=== PATIENT | male | born 1950 | race Caucasian/White ===

== ENCOUNTER 2018-02-23 07:07 | Day surgery (SDC) | payer MEDICARE, OTHER ==
[2018-02-23] MEDS ORDERED: LACTATED RINGERS 1,000 ML IV ONE (07:42)
[2018-02-23] MEDS ORDERED: fentaNYL 250 MCG/5 ML VIAL IVP ONE (08:04)
[2018-02-23] MEDS ORDERED: MIDAZOLAM 2 MG/2 ML VIAL IVP ONE (08:04)
[2018-02-23 09:09] VITALS: BP 140/53
== END 2018-02-23 07:08 | disposition home or self-care (01) ==
LOC: SDS 07:07
PROVIDERS: ATTEND Surgery
PROC: 0DBN8ZZ Excision of Sigmoid Colon, Via Natural or Artificial Opening Endoscopic (ICD-10-PCS; 2018-02-23)
PROC: 0DBN8ZZ Excision of Sigmoid Colon, Via Natural or Artificial Opening Endoscopic (ICD-10-PCS; 2018-02-23)
PROC: 0DBK8ZZ Excision of Ascending Colon, Via Natural or Artificial Opening Endoscopic (ICD-10-PCS; principal; 2018-02-23 08:15)
DX: Z12.11 Encounter for screening for malignant neoplasm of colon (principal); D12.2 Benign neoplasm of ascending colon; D12.5 Benign neoplasm of sigmoid colon; K63.5 Polyp of colon; I10 Essential (primary) hypertension; E11.9 Type 2 diabetes mellitus without complications; E78.5 Hyperlipidemia, unspecified; R01.1 Cardiac murmur, unspecified; J45.909 Unspecified asthma, uncomplicated; Z79.4 Long term (current) use of insulin; Z79.82 Long term (current) use of aspirin
CPT/HCPCS: 45380; 45385; J3010; J7120

== ENCOUNTER 2018-09-01 13:11 | Outpatient (CLI) | payer MEDICARE, OTHER ==
[2018-09-01 13:53] LABS: CALCIUM 9.1 mg/dL (8.5-10.3)
== END 2018-09-01 13:12 | disposition home or self-care (01) ==
LOC: LAB 13:11
PROVIDERS: ATTEND Internal Medicine
DX: E87.5 Hyperkalemia (principal)
CPT/HCPCS: 36415; 80048

== ENCOUNTER 2020-10-04 12:48 | Emergency (ER) | payer MEDICARE, OTHER ==
[2020-10-04 16:25] LABS: BILIRUBIN,URINE NEGATIVE (NEGATIVE); GLUCOSE, URINE (UA) NEGATIVE (NEGATIVE); KETONES,URINE (UA) TRACE mg/dL (NEGATIVE); LEUKOCYTE ESTERASE, URINE NEGATIVE (NEGATIVE); NITRITE,URINE NEGATIVE (NEGATIVE); OCCULT BLOOD,URINE NEGATIVE (NEGATIVE); PROTEIN,URINE NEGATIVE (NEGATIVE); UROBILINOGEN,URINE 0.2 (NORMAL) E.U./dL (NORMAL)
[2020-10-04 16:27] LABS: CLARITY,URINE CLEAR (CLEAR)
[2020-10-04 16:29] LABS: BASOPHILS % (AUTO) 0.3 %; EOSINOPHILS % (AUTO) 0.3 %; HCT - HEMATOCRIT 27.5 % (42.0-52.0); HGB - HEMOGLOBIN 7.7 g/dL (14.0-18.0); LYMPHOCYTES % (AUTO) 13.2 %; MEAN CORPUSCULAR HEMOGLOBIN 19.8 pg (27.0-31.0); MEAN CORPUSCULAR VOLUME 70.9 fL (80.0-94.0); MEAN PLATELET VOLUME 8.9 fL (7.4-11.4); MONOCYTES # (AUTO) 0.6 10^3/uL (0.0-1.0); MONOCYTES % (AUTO) 8.1 %; NEUTROPHILS # (AUTO) 6.1 10^3/uL (1.5-6.6); PLT - PLATELET COUNT 528 10^3/uL (130-450); RED BLOOD COUNT 3.88 10^6/uL (4.70-6.10); WHITE BLOOD COUNT 7.8 x10^3/uL (4.8-10.8)
--- NOTE | 2020-10-04 16:30 | XRAY Report ---
PROCEDURE: Chest 1 View X-Ray INDICATIONS: chest pain TECHNIQUE: One view of the chest was acquired. COMPARISON: None. FINDINGS: Surgical changes and devices: None. Lungs and pleura: There is elevation of the right hemidiaphragm. Linear right hilar opacities medial ly likely represent atelectasis. Left lung is clear. No pleural effusions or pneumothorax. Mediastinum: Mediastinal contours appear normal. Heart size is normal. Bones and chest wall: No suspicious bony lesions. Overlying soft tissues appear unremarkable. IMPRESSION: 1. Elevation of the right hemidiaphragm with probable atelectasis, versus consolidation, in the media l right lung base. Reviewed by: Gennaro Hoff MD on 10/04/2020 4:29 PM PDT Approved by: Gennaro Hoff MD on 10/04/2020 4:29 PM PDT Station ID: [id number]
[2020-10-04 16:38] LABS: SLIDE REVIEW? Indicated
--- NOTE | 2020-10-04 16:40 | ED Physician Documentation ---
History of Present Illness - Stated complaint Stated Complaint: NAUSEA, VOMITING - Chief complaint Chief Complaint: Abd Pain - Additonal information Additional information: 70-year-old male presents the emergency department for evaluation of intermittent nausea and vomiting. Symptoms began about 2 weeks ago. He reports that typically in the morning he is able to keep his breakfast down but then in the evenings or afternoon when he eats lunch or dinner he will vomit. Some nausea but not often. He denies chest pain or shortness of air no cough or fevers. No melena. No history of past surgical abdominal history. Past medical history is most significant for diabetes, asthma as well as aortic stenosis for which he is undergoing evaluation for possible valve replacement. Review of Systems Constitutional: denies: Fever, Chills Eyes: reports: Reviewed and negative Ears: reports: Reviewed and negative Nose: reports: Reviewed and negative Throat: reports: Reviewed and negative Cardiac: reports: Reviewed and negative Respiratory: reports: Reviewed and negative GI: reports: Nausea, Vomiting. denies: Abdominal Pain, Constipation, Diarrhea : denies: Dysuria, Frequency, Hesitancy Skin: denies: Rash, Lesions PD PAST MEDICAL HISTORY - Past Medical History Past Medical History: Yes Cardiovascular: Hypertension, High cholesterol, Murmur Respiratory: Asthma Endocrine/Autoimmune: Type 2 diabetes Derm: Eczema - Past Surgical History Past Surgical History: Yes General: Colonoscopy HEENT: Cataracts - Present Medications Home Medications: Ambulatory Orders Medication Instructions Recorded Confirmed Albuterol 2.5 mg INH Q4H PRN 02/20/18 02/23/18 Amlodipine Besylate 10 mg PO DAILY 02/20/18 02/23/18 Aspirin [Adult Aspirin] 81 mg PO DAILY 02/20/18 02/23/18 Chlorthalidone 25 mg PO DAILY 02/20/18 02/23/18 Doxazosin [Cardura] 8 mg PO DAILY 02/20/18 02/23/18 Fluticasone/Salmeterol [Advair 1 puffs PO QID 02/20/18 02/23/18 250-50 Diskus] Insulin Aspart [Novolog Flexpen] 10 unit SUBQ ACHS 02/20/18 02/23/18 Insulin Detemir [Levemir Flextouch] 28 unit SQ BID 02/20/18 02/23/18 Loratadine [Claritin] 10 mg PO DAILY 02/20/18 02/23/18 Simvastatin [Zocor] 20 mg PO DAILY 02/20/18 02/23/18 Telmisartan [Micardis] 40 mg PO DAILY 02/20/18 02/23/18 carvediloL [Carvedilol] 25 mg PO BID 02/20/18 02/23/18 metFORMIN [Glucophage] 1,000 mg PO BID 02/20/18 02/23/18 - Allergies Allergies/Adverse Reactions: Allergies Allergy/AdvReac Type Severity Reaction Status Date / Time furosemide [From Lasix] Allergy Cramps Verified 10/04/20 13:04 insulin glargine Allergy Unknown Verified 10/04/20 13:04 [From Lantus U-100 Insulin] minoxidil Allergy increased Verified 02/23/18 07:34 heart rate - Social History Does the pt smoke?: No Smoking Status: Never smoker Does the pt drink ETOH?: No Does the pt have substance abuse?: No - Immunizations Immunizations are current?: Yes PD ED PE EXPANDED - General General: Alert. No: No acute distress - Cardiac Cardiac: Regular Rate, Murmur Present, Radial strong equal, Cap refill < 2 sec - Respiratory Respiratory: Clear to ausultation kat, Other (Reduced lungs sounds right lower lobe). No: Distress, Labored - Abdomen Abdomen: Distended (Very distended abdomen but nontender. Normal bowel sounds. There are palpable lower abdominal hernias easily reduced laterally to the umbilicus). No: Tender to palpation - Derm Derm: Warm and dry, Pale - Extremities Extremities: Normal. No: Deformity, Tenderness - Neuro Neuro: Alert and Oriented X 3, CNII-XII intact - GCS Eye Opening: Spontaneous Motor: Obeys Commands Verbal: Oriented Total: 15 Results - Vitals Vitals: Vital Signs - 24 hr 10/04/20 10/04/20 10/04/20 12:57 15:58 17:07 Temperature 36.2 C L 98.6 C H 36.7 C Heart Rate 74 82 85 Respiratory 16 16 16 Rate Blood Pressure 104/69 105/51 L 123/53 L O2 Saturation 99 99 96 10/04/20 18:43 Temperature Heart Rate 91 Respiratory 18 Rate Blood Pressure 141/65 H O2 Saturation 100 Oxygen O2 Source Room air - EKG (time done) 1618 Rate: Rate (enter#) (85) Rhythm: NSR Intervals: Other (IVCD) QRS: Low voltage Ischemia: Normal ST segments Compare to prior EKG: Old EKG unavailable Computer interpretation: Agree with computer - Labs Labs: Laboratory Tests 10/04/20 10/04/20 10/04/20 16:10 16:20 16:20 WBC 7.8 RBC 3.88 L Hgb 7.7 L Hct 27.5 L MCV 70.9 L MCH 19.8 L MCHC 28.0 L RDW 21.0 H Plt Count 528 H MPV 8.9 Neut # (Auto) 6.1 Lymph # (Auto) 1.0 L [place] # (Auto) 0.6 Eos # (Auto) 0.0 Baso # (Auto) 0.0 Absolute Nucleated RBC 0.00 Nucleated RBC % 0.0 Manual Slide Review Indicated Platelet Estimate INCREASED (>450,000) Platelet Morphology NORMAL APPEARANCE RBC Morph Micro Appear 1+ SCHISTOCYTES Sodium 131 L Potassium 4.3 Chloride 93 L Carbon Dioxide 23 Anion Gap 15.0 H BUN 54 H Creatinine 1.5 H Estimated GFR (MDRD) 46 L Glucose 156 H POC Whole Bld Glucose Calcium 8.5 Total Bilirubin 0.8 AST 18 ALT 19 Alkaline Phosphatase 87 Troponin I High Sens Total Protein 7.7 Albumin 4.1 Globulin 3.6 Albumin/Globulin Ratio 1.1 Lipase 35 Urine Color YELLOW Urine Clarity CLEAR Urine pH 5.0 Ur Specific [place] 1.025 Urine Protein NEGATIVE Urine Glucose (UA) NEGATIVE Urine Ketones TRACE Urine Occult Blood NEGATIVE Urine Nitrite NEGATIVE Urine Bilirubin NEGATIVE Urine Urobilinogen 0.2 (NORMAL) Ur Leukocyte Esterase NEGATIVE Ur Microscopic Review NOT INDICATED Urine Culture Comments NOT INDICATED 10/04/20 10/04/20 16:20 16:27 WBC RBC Hgb Hct MCV MCH MCHC RDW Plt Count MPV Neut # (Auto) Lymph # (Auto) [place] # (Auto) Eos # (Auto) Baso # (Auto) Absolute Nucleated RBC Nucleated RBC % Manual Slide Review Platelet Estimate Platelet Morphology RBC Morph Micro Appear Sodium Potassium Chloride Carbon Dioxide Anion Gap BUN Creatinine Estimated GFR (MDRD) Glucose POC Whole Bld Glucose 142 H Calcium Total Bilirubin AST ALT Alkaline Phosphatase Troponin I High Sens 5.0 Total Protein Albumin Globulin Albumin/Globulin Ratio Lipase Urine Color Urine Clarity Urine pH Ur Specific [place] Urine Protein Urine Glucose (UA) Urine Ketones Urine Occult Blood Urine Nitrite Urine Bilirubin Urine Urobilinogen Ur Leukocyte Esterase Ur Microscopic Review Urine Culture Comments - Rads (name of study) CXR Radiology: Final report received (Elevation of the right hemidiaphragm with probable atelectasis, versus consolidation in the right medial lung base) PD MEDICAL DECISION MAKING - ED course Complexity details: reviewed results, re-evaluated patient, d/w patient ED course: 70 year old Male presents to the emergency department for evaluation of 2 weeks intermittent but uncontrolled vomiting. Does have a history of hypertension diabetes and aortic stenosis. Screening labs reveal a fairly significant anemia but he denies any melena history of cancers. He has never been told that he is anemic. He also appears relatively dry with an elevated BUN and creatinine. 1 L of IV fluids was ordered. CT scan performed it does show a small bowel obstruction without a discrete transition point. This case was discussed with our on-call hospitalist as well as surgeon but given the history of the aortic stenosis we do not have the ability to manage his heart valve from a cardiovascular standpoint therefore will search for the ability to placement a hospital with those services 1945: I have spoken with Dr. Mejia who is surgeon health information technologist who accepts dominique ent. Dr. leal is accepting hospitalist. An NGT has been placed. PT will be sent via ALS. BRUNO completed Departure - Departure Disposition: 02 Transfer Acute Care Hosp Clinical Impression: Small bowel obstruction Anemia Qualifiers: Anemia type: unspecified type Qualified Code(s): D64.9 - Anemia, unspecified Aortic stenosis Qualifiers: Cardiac valve disease etiology: etiology unspecified Qualified Code(s): I35.0 - Nonrheumatic aortic (valve) stenosis
[2020-10-04 16:42] LABS: ALBUMIN 4.1 g/dL (3.2-5.5); ALBUMIN/GLOBULIN RATIO 1.1 (1.0-2.2); BILIRUBIN,TOTAL 0.8 mg/dL (0.2-1.0); CALCIUM 8.5 mg/dL (8.5-10.3); CREATININE 1.5 mg/dL (0.6-1.2); POTASSIUM 4.3 mmol/L (3.5-5.0); TOTAL PROTEIN 7.7 g/dL (6.7-8.2)
[2020-10-04] MEDS ORDERED: SODIUM CHLORIDE 0.9% 1,000 ML IV STA (16:51)
[2020-10-04 17:07] LABS: PLATELET MORPHOLOGY NORMAL APPEARANCE (NORMAL)
[2020-10-04 17:08] LABS: PLATELET ESTIMATE, MANUAL INCREASED (>450,000) (NORMAL)
[2020-10-04] MEDS ORDERED: IOVERSOL 320 100 ML VIAL IVP ONE ×2 (17:08→19:44)
--- NOTE | 2020-10-04 18:27 | CT Report ---
PROCEDURE: Abdomen/Pelvis W INDICATIONS: intermittent vomiting; ? hernia? CONTRAST: IV CONTRAST: Optiray 320 ml: 100 PO CONTRAST: *NO PO CONTRAST TECHNIQUE: After the administration of intravenous contrast, 5 mm thick sections acquired from the diaphragms to the symphysis. 5 mm thick coronal and sagittal reformats were acquired. For radiation dose reducti on, the following was used: automated exposure control, adjustment of mA and/or kV according to dominique ent size. COMPARISON: None. FINDINGS: Image quality: Excellent. ABDOMEN: Lung bases: Minimal ill-defined groundglass opacity in the right middle lobe. Heart size is normal. T hree-vessel coronary artery calcifications. Aortic valvular calcification. Mitral annular calcificati on. Solid organs: Liver and spleen are normal in size and enhancement. Gallbladder is not distended. Sm all gallstone. Biliary system is non dilated. Pancreas enhances normally. No adrenal nodules. Kid neys demonstrate normal size and enhancement, without hydronephrosis. Peritoneum and bowel: Stomach is distended. The duodenum is distended. The proximal small bowel is di lated. The small bowel measures up to 6.5 centers in diameter, (3/43). No discrete transition point t he small bowel has a gradual transition to normal caliber. The appendix is not identified. The colon is not distended. There is mildly prominent fecal residue throughout the colon. No significant divert iculosis. No pneumatosis intestinalis identified. There is mid abdomen mesenteric edema. Nodes and vessels: Prominent mesenteric lymph nodes. No retroperitoneal adenopathy. Aorta and inferi or vena cava are normal in size. Extensive calcified atherosclerotic plaque. Miscellaneous: No ventral hernias. Mild subcutaneous thickening and calcification in the lower abdom inal wall. PELVIS: Genitourinary: Bladder is unremarkable. Miscellaneous: No inguinal hernias or adenopathy. Bones: No suspicious bony lesions. Moderate DDD. No vertebral body compression fractures. IMPRESSION: 1. Small bowel obstruction. No discrete transition point. 2. Mid abdomen mesenteric edema and prominent lymph nodes. This could be reactive. 3. Mildly prominent stool the colon. 4. Small gallstone. Results were communicated to Carlie Gonzalez at 10/04/2020 6:25 PM PDT. Reviewed by: Tip Cowan MD on 10/04/2020 6:26 PM PDT Approved by: iTp Cowan MD on 10/04/2020 6:26 PM PDT Station ID: [id number]
[2020-10-04] MEDS ORDERED: LIDOCAINE JELLY 2% 6 ML JEL.PF.APP TOP STA (19:18)
[2020-10-04 20:39] VITALS: BP 127/57
[2020-10-04 21:03] LABS: B. PARAPERTUSSIS- RESP PCR PAN NOT DETECTED; B. PERTUSSIS- RESP PCR PANEL NOT DETECTED; C. PNEUMONIAE- RESP PCR PANEL NOT DETECTED; CORONAVIRUS 229E-RESP PCR NOT DETECTED; CORONAVIRUS HKU1-RESP PCR NOT DETECTED; CORONAVIRUS NL63-RESP PCR NOT DETECTED; CORONAVIRUS OC43-RESP PCR NOT DETECTED; HUMAN METAPNEUMOVIRUS NOT DETECTED; INFLUENZA A- RESP PCR PANEL NOT DETECTED; INFLUENZA B - RESP PCR PANEL NOT DETECTED; M. PNEUMONIAE- RESP PCR PANEL NOT DETECTED; PARAINFLUENZA VIRUS 1 NOT DETECTED; PARAINFLUENZA VIRUS 2 NOT DETECTED; PARAINFLUENZA VIRUS 3 NOT DETECTED; PARAINFLUENZA VIRUS 4 NOT DETECTED; RHINOVIRUS/ENTEROVIRUS NOT DETECTED; RSV- RESP PCR PANEL NOT DETECTED; SARS-CoV-2 -RESP PCR PANEL NOT DETECTED
== END 2020-10-04 20:49 | disposition short-term general hospital (02) ==
LOC: ED 12:48
DX: K56.609 Unspecified intestinal obstruction, unspecified as to partial versus complete obstruction (principal); D64.9 Anemia, unspecified; I35.0 Nonrheumatic aortic (valve) stenosis; K46.9 Unspecified abdominal hernia without obstruction or gangrene; I10 Essential (primary) hypertension; E11.9 Type 2 diabetes mellitus without complications; Z79.4 Long term (current) use of insulin; Z79.82 Long term (current) use of aspirin; J45.909 Unspecified asthma, uncomplicated; Z20.822 Contact with and (suspected) exposure to COVID-19
CPT/HCPCS: 36415; 71045; 74177; 80053; 81003; 83690; 84484; 85025; 87631; 93005; 96360; 96361; 99284; 99285; Q9967; 0202U; 81001; 87086

== ENCOUNTER 2020-10-04 20:51 | Outpatient (CLI) | payer MEDICARE, OTHER | END 2020-10-04 20:52 | disposition short-term general hospital (02) | LOC: EMS 20:51 | PROVIDERS: ATTEND Registered Nurse | DX: E11.9 Type 2 diabetes mellitus without complications (principal); I10 Essential (primary) hypertension; K56.609 Unspecified intestinal obstruction, unspecified as to partial versus complete obstruction; I35.0 Nonrheumatic aortic (valve) stenosis | CPT/HCPCS: A0425; A0428 ==

== ENCOUNTER 2020-11-09 09:37 | Emergency (ER) | payer MEDICARE, OTHER ==
[2020-11-09] MEDS ORDERED: SODIUM CHLORIDE 0.9% 1,000 ML IV STA ×3 (10:09→13:50)
[2020-11-09 10:50] LABS: BASOPHILS % (AUTO) 0.4 %; EOSINOPHILS % (AUTO) 0.8 %; HCT - HEMATOCRIT 33.4 % (42.0-52.0); HGB - HEMOGLOBIN 10.1 g/dL (14.0-18.0); LYMPHOCYTES % (AUTO) 7.6 %; MEAN CORPUSCULAR HEMOGLOBIN 24.5 pg (27.0-31.0); MEAN CORPUSCULAR HGB CONC 30.2 g/dL (32.0-36.0); MEAN CORPUSCULAR VOLUME 80.9 fL (80.0-94.0); MEAN PLATELET VOLUME 11.3 fL (7.4-11.4); MONOCYTES % (AUTO) 6.1 %; NEUTROPHILS % (AUTO) 84.7 %; PLT - PLATELET COUNT 307 10^3/uL (130-450); RED BLOOD COUNT 4.13 10^6/uL (4.70-6.10); RED CELL DISTRIBUTION WIDTH 23.2 % (12.0-15.0); WHITE BLOOD COUNT 13.7 x10^3/uL (4.8-10.8)
[2020-11-09 10:54] LABS: ABNORMAL LYMPHS % (MANUAL) 0 %
[2020-11-09 11:06] LABS: ALBUMIN 3.3 g/dL (3.2-5.5); BILIRUBIN,TOTAL 1.5 mg/dL (0.2-1.0); CALCIUM 8.9 mg/dL (8.5-10.3); CREATININE 2.7 mg/dL (0.6-1.2); POTASSIUM 4.6 mmol/L (3.5-5.0); TOTAL PROTEIN 6.7 g/dL (6.7-8.2)
[2020-11-09 11:27] LABS: BAND NEUTROPHILS % (MANUAL) 7 %; EOSINOPHILS # (MANUAL) 0.5 10^3/uL (0-0.7); LYMPHOCYTES # (MANUAL) 1.1 10^3/uL (1.5-3.5); LYMPHOCYTES % (MANUAL) 8 %; MONOCYTES # (MANUAL) 0.3 10^3/uL (0.0-1.0); NEUTROPHILS # (MANUAL) 11.8 10^3/uL (1.5-6.6)
[2020-11-09 11:28] LABS: DIFFERENTIAL COMMENT MANUAL DIFFERENTIAL; PLATELET ESTIMATE, MANUAL NORMAL (130-450,000) (NORMAL); PLATELET MORPHOLOGY NORMAL APPEARANCE (NORMAL)
[2020-11-09] MEDS ORDERED: ONDANSETRON 4 MG/2 ML VIAL IVP STA (11:51)
--- NOTE | 2020-11-09 12:27 | ED Physician Documentation ---
History of Present Illness - Stated complaint Stated Complaint: WEAKNESS - Chief complaint Chief Complaint: Cardiac - History obtained from History obtained from: Patient - Additonal information Additional information: Patient comes emergency department chief complaint of generalized weakness and frequent falls. He states that he has been vomiting on a daily basis, though this is not constant and he is able to hold down Pedia sure clear liquids in between. However, he does not think that he is been able to stay adequately hydrated. The patient denies any black stools. No blood in his vomit or coffee grounds. The patient was seen for the symptoms about a month ago at first that would be ED and then ultimately transferred to [facility] for possible bowel obstruction with underlying condition of aortic stenosis. He was in the hospital for some days during which time an exploratory laparotomy was performed. Patient states he was told he did not actually have a bowel obstruction but just a large caliber large bowel. He states that he was evaluated at that time for his aortic stenosis, which has been ongoing for the last 30 years. He states that he has an appointment coming up with the cardiovascular surgeon in about 1 month., And the plan is for likely valve replacement. Patient states that he was never really told why he is having the digestive system problems, but that he did have endoscopy and a colonoscopy about 4 days ago. He has not heard anything further about this, either. He has been living at home by himself except for his severely disabled brother, who has MRCP. Patient states he is the sole caregiver of his brother and that they do not have any other family members anywhere nearby. He does have a neighbor who takes him to his doctor's appointments and does try to provide some assistance. The patient is not currently on any antiemetics at home. He states he is just weak and feels like he cannot even stand up sometimes. He states this has been going on for about the last week. No chest pain or shortness of breath. No fevers. No dysuria. No other complaints at this time. Other than a couple of bruises on his forehead which are old, no injuries from the falls. Review of Systems Ten Systems: 10 systems reviewed and negative Constitutional: reports: Reviewed and negative Eyes: reports: Reviewed and negative Ears: reports: Reviewed and negative Nose: reports: Reviewed and negative Throat: reports: Reviewed and negative Cardiac: reports: Reviewed and negative Respiratory: reports: Reviewed and negative GI: reports: Nausea, Vomiting, Reviewed and negative : reports: Reviewed and negative Skin: reports: Reviewed and negative Musculoskeletal: reports: Reviewed and negative Neurologic: reports: Generalized weakness Psychiatric: reports: Reviewed and negative Endocrine: reports: Reviewed and negative Immunocompromised: reports: Reviewed and negative PD PAST MEDICAL HISTORY - Past Medical History Past Medical History: Yes Cardiovascular: Hypertension, High cholesterol, Murmur Respiratory: Asthma Endocrine/Autoimmune: Type 2 diabetes Derm: Eczema - Past Surgical History Past Surgical History: Yes General: Colonoscopy HEENT: Cataracts - Present Medications Home Medications: Ambulatory Orders Medication Instructions Recorded Confirmed Albuterol 2.5 mg INH Q4H PRN 02/20/18 11/09/20 Amlodipine Besylate 5 mg PO DAILY 02/20/18 11/09/20 Aspirin [Adult Aspirin] 81 mg PO DAILY 02/20/18 11/09/20 Doxazosin [Cardura] 8 mg PO DAILY 02/20/18 11/09/20 Fluticasone/Salmeterol [Advair 1 puffs PO QID 02/20/18 11/09/20 250-50 Diskus] Loratadine [Claritin] 10 mg PO DAILY 02/20/18 11/09/20 Simvastatin [Zocor] 20 mg PO DAILY 02/20/18 11/09/20 Telmisartan [Micardis] 40 mg PO DAILY 02/20/18 11/09/20 carvediloL [Carvedilol] 25 mg PO BID 02/20/18 11/09/20 Insulin Degludec [Tresiba] 15 unit DAILY 11/09/20 11/09/20 Ondansetron Odt [Zofran] 4 mg TL Q6H PRN #20 tablet 11/09/20 - Allergies Allergies/Adverse Reactions: Allergies Allergy/AdvReac Type Severity Reaction Status Date / Time furosemide [From Lasix] Allergy Cramps Verified 11/09/20 09:59 insulin glargine Allergy Unknown Verified 11/09/20 09:59 [From Lantus U-100 Insulin] minoxidil Allergy increased Verified 11/09/20 09:59 heart rate - Social History Does the pt smoke?: No Smoking Status: Never smoker Does the pt drink ETOH?: No Does the pt have substance abuse?: No - Immunizations Immunizations are current?: Yes PD ED PE NORMAL - Vitals Vital signs reviewed: Yes - General General: Alert and oriented X 3, No acute distress, Well developed/nourished - HEENT HEENT: Atraumatic, PERRL, EOMI, Moist mucous membranes - Neck Neck: Supple, no meningeal sign - Cardiac Cardiac: RRR, Strong equal pulses, Other (3-6 systolic murmur.) - Respiratory Respiratory: No respiratory distress, Clear bilaterally - Abdomen Abdomen: Soft, Non tender, Non distended - Derm Derm: Warm and dry, No rash, Other (Marked pallor) - Extremities Extremities: No deformity, No edema, No calf tenderness / cord - Neuro Neuro: Alert and oriented X 3, director apparel 2-12 intact, Normal speech - Psych Psych: Normal mood, Normal affect Results - Vitals Vitals: Vital Signs - 24 hr 11/09/20 11/09/20 11/09/20 09:50 10:05 10:09 Temperature 35.8 C L 35.8 C L Heart Rate 118 H 87 Respiratory 19 15 Rate Blood Pressure 64/37 L 109/96 H O2 Saturation 94 98 11/09/20 11/09/20 11/09/20 11:00 11:30 12:00 Temperature Heart Rate 82 80 80 Respiratory 16 16 16 Rate Blood Pressure 86/54 L 93/47 L 94/45 L O2 Saturation 100 100 100 11/09/20 11/09/20 11/09/20 12:30 13:00 13:20 Temperature Heart Rate 81 88 85 Respiratory 16 17 18 Rate Blood Pressure 98/50 L 84/50 L 89/49 L O2 Saturation 100 98 100 Oxygen O2 Source Room air - EKG (time done) 1221 Rate: Rate (enter#) (80) Rhythm: NSR [place]: Normal Intervals: RBBB QRS: Normal Ischemia: Normal ST segments Compare to prior EKG: Old EKG unavailable Computer interpretation: Agree with computer - Labs Labs: Laboratory Tests 11/09/20 11/09/20 11/09/20 10:15 10:15 12:36 WBC 13.7 H RBC 4.13 L Hgb 10.1 L Hct 33.4 L MCV 80.9 MCH 24.5 L MCHC 30.2 L RDW 23.2 H Plt Count 307 MPV 11.3 Neut # (Auto) Not Reportable Lymph # (Auto) Not Reportable [place] # (Auto) Not Reportable Eos # (Auto) Not Reportable Baso # (Auto) Not Reportable Absolute Nucleated RBC Not Reportable Total Counted 100 Band Neuts % (Manual) 7 Abnorm Lymph % (Manual) 0 Nucleated RBC % Not Reportable Neutrophils # (Manual) 11.8 H Lymphocytes # (Manual) 1.1 L Monocytes # (Manual) 0.3 Eosinophils # (Manual) 0.5 Basophils # (Manual) 0.0 Differential Comment MANUAL DIFFERENTIAL Platelet Estimate NORMAL (130-450,000) Platelet Morphology NORMAL APPEARANCE RBC Morph Micro Appear 1+ POIKILOCYTOSIS INR (Fingerstick) Sodium 128 L Potassium 4.6 Chloride 88 L Carbon Dioxide 24 Anion Gap 16.0 H BUN 57 H Creatinine 2.7 H Estimated GFR (MDRD) 23 L Glucose 231 H Lactic Acid Calcium 8.9 Total Bilirubin 1.5 H AST 23 ALT 15 Alkaline Phosphatase 78 Troponin I High Sens 6.3 Total Protein 6.7 Albumin 3.3 Globulin 3.4 Albumin/Globulin Ratio 1.0 Lipase 19 L Urine Color Urine Clarity Urine pH Ur Specific [place] Urine Protein Urine Glucose (UA) Urine Ketones Urine Occult Blood Urine Nitrite Urine Bilirubin Urine Urobilinogen Ur Leukocyte Esterase Ur Microscopic Review Urine Culture Comments 11/09/20 11/09/20 11/09/20 12:36 13:22 15:44 WBC RBC Hgb Hct MCV MCH MCHC RDW Plt Count MPV Neut # (Auto) Lymph # (Auto) [place] # (Auto) Eos # (Auto) Baso # (Auto) Absolute Nucleated RBC Total Counted Band Neuts % (Manual) Abnorm Lymph % (Manual) Nucleated RBC % Neutrophils # (Manual) Lymphocytes # (Manual) Monocytes # (Manual) Eosinophils # (Manual) Basophils # (Manual) Differential Comment Platelet Estimate Platelet Morphology RBC Morph Micro Appear INR (Fingerstick) 1.1 Sodium Potassium Chloride Carbon Dioxide Anion Gap BUN Creatinine Estimated GFR (MDRD) Glucose Lactic Acid 2.1 Calcium Total Bilirubin AST ALT Alkaline Phosphatase Troponin I High Sens Total Protein Albumin Globulin Albumin/Globulin Ratio Lipase Urine Color YELLOW Urine Clarity CLEAR Urine pH 5.5 Ur Specific [place] 1.020 Urine Protein NEGATIVE Urine Glucose (UA) NEGATIVE Urine Ketones NEGATIVE Urine Occult Blood NEGATIVE Urine Nitrite NEGATIVE Urine Bilirubin NEGATIVE Urine Urobilinogen 0.2 (NORMAL) Ur Leukocyte Esterase NEGATIVE Ur Microscopic Review NOT INDICATED Urine Culture Comments NOT INDICATED - Rads (name of study) cxr Radiology: Final report received, EMP read indepedently, See rad report (Negative) PD MEDICAL DECISION MAKING - ED course Complexity details: reviewed old records, reviewed results, re-evaluated patient, considered differential, d/w patient ED course: The patient was worked up with labs, urinalysis, and treated with IV fluid boluses. I did review his old records and found that he had had a hemoglobin of 7.7 on his last visit here back in late September. Today, he had actually come up to 10.1. The patient was found to have a worsened creatinine at 2.7 and BUN slightly higher than previously, also. GFR was 23. I was concerned for dehydration and give the patient first liter of normal saline after which she had no desire to urinate. A second liter was ordered. He was also hypotensive in the emergency department steady around 80s to 90s systolic. The patient over the course of some hours in the emergency department was given a total of 3 L of point and normal saline after which he finally was able to produce some dark yellow urine. The patient reported feeling much better and got up and walked around the ED without difficulty. He was drinking ice water on reevaluation. His blood pressure did come up into the 80s to 90s systolic, and had been stable there for several hours. Patient stated that this was the blood pressure he also had a couple weeks ago when he saw his doctor last. Patient states that he has had blood pressures systolic around 90 for the last 2 weeks since. His lactic acid level was normal and so was troponin. I felt the patient was stable for discharge home. He has extensive specialty connections established in [place] with both orthopedics and cardiology and GI. We have discussed the need to have an antiemetic home, and I have prescribed ODT Zofran. Patient will take it every 6 hours during waking hours for the next few days to help get his nausea under control and allow him to drink more oral fluids. We have discussed follow-up and the usual indications for return. Departure - Departure Disposition: 01 Home, Self Care Clinical Impression: Dehydration Vomiting Qualifiers: Vomiting type: bilious vomiting Nausea presence: with nausea Qualified Code(s): R11.14 - Bilious vomiting Condition: Stable Instructions: ED Dehydration, ED Nausea Vomiting Prescriptions: Ondansetron Odt [Zofran] 4 mg TL Q6H PRN #20 tablet PRN Reason: Nausea / Vomiting Comments: Your labs showed evidence of significant dehydration and it took 3 L of IV fluid for you to produce any urine at all tonight. Given that your urine is still dark yellow even after 3 L of fluid, it is very important that you try to get plenty of clear liquids to drink at home, as well. You have been treated with IV Zofran in the emergency department, and will be given a prescription for the same in a uezi-bi-ebe-mouth tablet form for home. You should probably take it every 6 hours during waking hours for the next few days, in order to prevent nausea and allow yourself to drink plenty of fluids and finish rehydrating. You should continue your plans to see your specialist regarding your ongoing gastrointestinal issues and your aortic stenosis. As far as your anemia, you actually of improved quite a bit since the last time we saw you about a month ago, and are nowhere near the transfusion range today.
--- NOTE | 2020-11-09 13:12 | XRAY Report ---
PROCEDURE: Chest 1 View X-Ray INDICATIONS: chest pain TECHNIQUE: One view of the chest was acquired. COMPARISON: Chest radiographs 10/04/2020 FINDINGS: Surgical changes and devices: None. Lungs and pleura: The lung volumes are seen bilaterally with stable elevation of the right hemidiaphr agm that is less prominent due to lower left lung volume. There is atelectasis of the lung bases. No pleural effusion or pneumothorax. Mediastinum: Mediastinal contours appear normal. Heart size is normal. Bones and chest wall: No suspicious bony lesions. Overlying soft tissues appear unremarkable. IMPRESSION: Low lung volumes bilaterally with atelectasis of the lung bases and unchanged mild elevation of the r ight hemidiaphragm. Reviewed by: Isidoro Ledesma MD on 11/09/2020 1:11 PM PDT Approved by: Isidoro Ledesma MD on 11/09/2020 1:11 PM PDT Station ID: [id number]
[2020-11-09 15:54] LABS: BILIRUBIN,URINE NEGATIVE (NEGATIVE); GLUCOSE, URINE (UA) NEGATIVE (NEGATIVE); KETONES,URINE (UA) NEGATIVE (NEGATIVE); LEUKOCYTE ESTERASE, URINE NEGATIVE (NEGATIVE); NITRITE,URINE NEGATIVE (NEGATIVE); OCCULT BLOOD,URINE NEGATIVE (NEGATIVE); PH,URINE 5.5 PH (5.0-7.5); PROTEIN,URINE NEGATIVE (NEGATIVE); UROBILINOGEN,URINE 0.2 (NORMAL) E.U./dL (NORMAL)
[2020-11-09 15:59] LABS: CLARITY,URINE CLEAR (CLEAR)
[2020-11-09 19:48] VITALS: BP 91/57
== END 2020-11-09 16:55 | disposition home or self-care (01) ==
LOC: ED 09:37
DX: I10 Essential (primary) hypertension (principal); E11.9 Type 2 diabetes mellitus without complications; E86.0 Dehydration; R11.14 Bilious vomiting; Z91.81 History of falling; I35.0 Nonrheumatic aortic (valve) stenosis
CPT/HCPCS: 36415; 80053; 81001; 81003; 83605; 83690; 84484; 85025; 85610; 85730; 86850; 86900; 86901; 87086; 93005; 96361; 96374; 99284

== ENCOUNTER 2020-11-11 10:40 | Outpatient (CLI) | payer MEDICARE, OTHER | END 2020-11-11 10:41 | disposition E | LOC: EMS 10:40 | DX: I46.9 Cardiac arrest, cause unspecified (principal) | CPT/HCPCS: A0425; A0429 ==